=== PATIENT | female | born 1980 | race Caucasian/White ===

== ENCOUNTER → 2019-04-27 | Outpatient (CLI) | payer OTHER ==
[~2019-04-27] MED LIST: BIRTH CONTROL
[2019-04-29 14:07] LABS: HPV 16 Negative (Negative); HPV 18 Negative (Negative); HPV OTHER HR TYPES Positive (Negative)
== END | disposition home or self-care (01) ==
LOC: LAB SHORT 10:00 → LAB 10:00
PROVIDERS: Nurse Practitioner Family
DX: Z01.419 Encounter for gynecological examination (general) (routine) without abnormal findings (principal)
CPT/HCPCS: 87624; G0145

== ENCOUNTER → 2021-05-26 | Outpatient (CLI) | payer OTHER ==
[2021-05-30 14:10] LABS: HPV 16 Negative (Negative); HPV 18 Negative (Negative); HPV OTHER HR TYPES Positive (Negative)
== END | disposition home or self-care (01) ==
LOC: LAB SHORT 17:41 → LAB 17:41
PROVIDERS: Nurse Practitioner Family
DX: Z01.419 Encounter for gynecological examination (general) (routine) without abnormal findings (principal)
CPT/HCPCS: 87624; G0145